=== PATIENT | female | born 1980 | race Caucasian/White ===

== ENCOUNTER → 2017-07-26 | Outpatient (CLI) | payer OTHER ==
--- NOTE | 2017-07-30 09:03 | MR ---
EXAMINATION TYPE: MR lumbar spine wo con DATE OF EXAM: 07/26/2017 COMPARISON: CT scan 10/24/2015, MRI 09/23/2014 HISTORY: Low back pain x4-5 Years, getting worse, previous MRI on PACS TECHNIQUE: T1 and T2 axial and sagittal images of the lumbar spine are submitted. FINDINGS: There is no abnormal signal seen within the visualized spinal cord or paraspinal soft tissu es. Incidental note made of gallstones. At L1-2 there is no disc herniation or canal stenosis. No foraminal encroachment. At L2-3 there is no disc herniation or canal stenosis. No foraminal encroachment. At L3-4 there is focal central disc bulging with mild effacement of thecal sac. No Canal stenosis. Ne ural foramina are patent. At L4-5 there is broad-based central disc protrusion with mild effacement of thecal sac. Hypertrophic change and ligamentum flavum and facets are noted. Mild bilateral foraminal encroachment and central stenosis. At L5-S1 there is severe degenerative disc disease with vacuum disc and facet arthropathy. There is m oderate bilateral foraminal encroachment and mild effacement of thecal sac due to broad-based central disc bulging and borderline stenosis. IMPRESSION: 1. Severe degenerative disc disease L5-S1 with facet arthropathy and bilateral foraminal encroachment . Broad-based disc bulging or protrusion results in mild effacement of thecal sac and borderline to m ild canal stenosis. 2. Broad-based central disc protrusion L4-L5 with mild effacement of thecal sac and mild central sten osis. 3. Focal central disc bulging L3-L4 with no canal stenosis or foraminal encroachment. 4. Findings at all levels are stable. 5. Cholelithiasis.
== END | disposition home or self-care (01) ==
LOC: RADMRIMAIN 21:20
PROVIDERS: ATTEND Family Medicine
DX: M48.07 Spinal stenosis, lumbosacral region (principal); M51.27 Other intervertebral disc displacement, lumbosacral region; M51.37 Other intervertebral disc degeneration, lumbosacral region; M46.97 Unspecified inflammatory spondylopathy, lumbosacral region
CPT/HCPCS: 72148

== ENCOUNTER 2017-07-27 14:10 | Emergency (ER) | payer OTHER ==
[2017-07-27] MEDS ORDERED: HYDROcodone/APAP 10-325MG 1 EACH TAB PO ONE (15:46)
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
[2017-07-27 16:18] VITALS: RESP 18
[2017-07-27 16:28] LABS: Basophils # (A) 0.1 k/uL (0-0.2); Basophils % (A) 1 %; Eosinophils # (A) 0.3 k/uL (0-0.7); Eosinophils % (A) 3 %; HCT 36.2 % (34.0-46.0); HGB 11.6 gm/dL (11.4-16.0); Lymphocytes # (A) 1.9 k/uL (1.0-4.8); Lymphocytes % (A) 19 %; MCH 32.2 pg (25.0-35.0); MCHC 31.9 g/dL (31.0-37.0); MCV 100.7 fL (80.0-100.0); Macrocytosis Slight; Mean Platelet Volume 7.5; Monocytes # (A) 0.4 k/uL (0-1.0); Monocytes % (A) 4 %; Neutrophils # (A) 7.1 k/uL (1.3-7.7); Neutrophils % (A) 72 %; Platelet Count 417 k/uL (150-450); RBC 3.59 m/uL (3.80-5.40); RDW 14.6 % (11.5-15.5); WBC 9.8 k/uL (3.8-10.6)
[2017-07-27 16:30] LABS: Appearance,Urine Turbid (Clear); Bilirubin,Urine Negative (Negative); Blood,Urine Large (Negative); Color,Urine Dark Red; Glucose,Urine (UA) Negative (Negative); Ketones,Urine Negative (Negative); Leukocyte Esterase,Urine Small (Negative); Mucus,Urine Few /hpf; Nitrite,Urine Negative (Negative); Protein,Urine 2+ (Negative); RBC,Urine >182 /hpf (0-5); Specific Gravity,Urine 1.019 (1.001-1.035); Squamous Epithelial Cell,Urine 25 /hpf (0-4); Urobilinogen,Urine <2.0 mg/dL (<2.0); WBC,Urine 5 /hpf (0-5)
[2017-07-27 16:45] LABS: ALT 44 U/L (9-52); AST 33 U/L (14-36); Albumin 3.2 g/dL (3.5-5.0); Alkaline Phosphatase 58 U/L (38-126); Anion Gap 5 mmol/L; Blood Urea Nitrogen 15 mg/dL (7-17); Calcium 8.5 mg/dL (8.4-10.2); Carbon Dioxide 29 mmol/L (22-30); Chloride 107 mmol/L (98-107); Glucose 82 mg/dL (74-99); Potassium 3.7 mmol/L (3.5-5.1); Sodium 141 mmol/L (137-145); Total Bilirubin 0.3 mg/dL (0.2-1.3); Total Protein 5.9 g/dL (6.3-8.2)
[2017-07-27 17:41] LABS: T4, Free (Free Thyroxine) 0.12 ng/dL (0.78-2.19)
[2017-07-27 18:22] VITALS: BP 143/77; PULSE 70; TEMP 98
== END 2017-07-27 18:22 | disposition home or self-care (01) ==
LOC: EC 14:10
DX: E03.9 Hypothyroidism, unspecified (principal); G40.909 Epilepsy, unspecified, not intractable, without status epilepticus; G89.29 Other chronic pain; F32.9 Major depressive disorder, single episode, unspecified; F17.200 Nicotine dependence, unspecified, uncomplicated; Z79.1 Long term (current) use of non-steroidal anti-inflammatories (NSAID); Z79.899 Other long term (current) drug therapy; Z88.5 Allergy status to narcotic agent; Z88.8 Allergy status to other drugs, medicaments and biological substances
CPT/HCPCS: 36415; 80053; 81001; 81025; 83880; 84439; 84443; 85025; 99284

== ENCOUNTER → 2019-01-16 | Outpatient (CLI) | payer OTHER ==
--- NOTE | 2019-01-16 15:05 | XR ---
EXAMINATION TYPE: XR chest 2V DATE OF EXAM: 01/16/2019 COMPARISON: NONE TECHNIQUE: PA and lateral views submitted. HISTORY: left posterior thorax pain FINDINGS: The lungs are clear and there is no pneumothorax, pleural effusion, or focal pneumonia. Atrophic ch jesus of the spine. Hyperinflation suggests COPD IMPRESSION: 1. No acute process.
--- NOTE | 2019-01-16 15:06 | XR ---
EXAMINATION TYPE: XR thoracic spine complete DATE OF EXAM: 01/16/2019 COMPARISON: NONE HISTORY: Pain Alignment is anatomic. There is no compression deformities. Vertebral body height and disc interspa sophie are maintained. Mild hypertrophic change of the vertebral column. There is mild degenerative dis c disease involving the mid and lower vertebral column. IMPRESSION: 1. Mild hypertrophic changes with no compression deformities. If there is concern for disc herniation consider follow-up MRI.
== END | disposition home or self-care (01) ==
LOC: RADXRMAIN 14:21
PROVIDERS: ATTEND Emergency Medicine
DX: M53.84 Other specified dorsopathies, thoracic region (principal); R07.82 Intercostal pain; S20.222D Contusion of left back wall of thorax, subsequent encounter
CPT/HCPCS: 71046; 72072

== ENCOUNTER → 2019-09-14 | Outpatient (CLI) | payer BC ==
--- NOTE | 2019-09-14 12:19 | EST ---
EXERCISE STRESS AGE: 39 SEX: M HT: 5'8' WT: 165 PROTOCOL: Exercise Stress Test STAGE: IV DURATION OF EXERCISE: 12:00 HEART RATE REST: 65 BLOOD PRESSURE REST: 130/67 MAXIMUM HEART RATE ACHIEVED: 152 MAXIMUM BLOOD PRESSURE: 169/68 85% MPHR: 154 100% MPHR: 181 METS: 13.0 INDICATIONS: Hyperlipidemia, family history. CLINICAL INFORMATION: Baseline EKG shows sinus rhythm, poor R-wave progression. Normal axis, normal intervals. Patient exercised on Mitchel protocol for a total of 12 minutes achieving 13 METS, 84% of predicted maximal heart rate without chest pain or diagnostic ST-segment depression. CONCLUSION: 1. Excellent exercise tolerance. 2. Negative stress test by EKG criteria at 84% of predicted maximal heart rate. MMODL / IJN: [id number] /
== END | disposition home or self-care (01) ==
LOC: RADNMMAIN 09:56
PROVIDERS: ATTEND Family Medicine
DX: I10 Essential (primary) hypertension (principal); E78.00 Pure hypercholesterolemia, unspecified; Z82.49 Family history of ischemic heart disease and other diseases of the circulatory system; Z88.6 Allergy status to analgesic agent; Z88.8 Allergy status to other drugs, medicaments and biological substances
CPT/HCPCS: 93017

== ENCOUNTER 2021-08-09 22:32 | Emergency (ER) | payer BC, OTHER ==
[2021-08-09 22:43] VITALS: BP 133/89; PULSE 83; RESP 18; TEMP 97.1
--- NOTE | 2021-08-09 22:52 | ED ---
ENT HPI - General Chief complaint: Dental/Oral Stated complaint: Dental Abscess Time Seen by Provider: 08/09/21 22:42 Source: patient, RN notes reviewed Mode of arrival: ambulatory Limitations: no limitations - History of Present Illness Initial comments: This is a pleasant 40-year-old female comes ER complaining of a tender lump near her upper anterior gum line which popped earlier tonight and drained pus. Patient states it feels much better now. However he is concerned about infection. No sore throat or difficulty swallowing. No other sores or intraoral lesions. No fever or chills. No immunosuppression. Patient is a cigarette smoker. Patient has a history of thyroid disease. No diabetes. No headache, no fever or chills, no changes in vision or hearing, no sore throat or difficulty with speech, no neck pain, no chest pain or shortness of breath, no abdominal pain, no nausea or vomiting, no changes in urination or bowel movements, no numbness or tingling, no extremity pain, no skin rashes or lesions. MD complaint: tooth pain - Related Data Home Medications Medication Instructions Recorded Confirmed Atorvastatin Calcium [Lipitor] 40 mg PO HS 06/27/16 07/27/17 Ibuprofen [Motrin] 800 mg PO TID 06/27/16 07/27/17 Citalopram Hydrobromide [CeleXA] 40 mg PO DAILY 07/27/17 07/27/17 Cyclobenzaprine [Flexeril] 10 mg PO TID 07/27/17 07/27/17 Levothyroxine Sodium [Synthroid] 137 mcg PO DAILY 07/27/17 07/27/17 levETIRAcetam [Keppra] 250 mg PO BID 07/27/17 07/27/17 Previous Rx's Medication Instructions Recorded HYDROcodone/APAP 10-325MG [[place] 1 tab PO Q6H PRN #8 tab 07/27/17 10-325] Cyclobenzaprine [Flexeril] 10 mg PO TID PRN #15 tab 12/30/18 Ibuprofen [Motrin] 600 mg PO Q8HR PRN #30 tab 12/30/18 Penicillin V Potassium [Pen Vee K] 500 mg PO QID #40 tablet 08/09/21 Allergies Allergy/AdvReac Type Severity Reaction Status Date / Time buprenorphine [From Butrans] AdvReac Severe Chest Verified 08/09/21 22:43 Pain/Sweating/Nausea/Altered Mental Status tramadol AdvReac Seizures Verified 08/09/21 22:43 Review of Systems ROS Statement: Those systems with pertinent positive or pertinent negative responses have been documented in the HPI. ROS Other: All systems not noted in ROS Statement are negative. Past Medical History Past Medical History: Seizure Disorder, Thyroid Disorder Additional Past Medical History / Comment(s): graves, chronic back pain, History of Any Multi-Drug Resistant Organisms: None Reported Past Surgical History: Appendectomy, Section, Tubal Ligation Past Psychological History: Anxiety, Depression Smoking Status: Light tobacco smoker Past Alcohol Use History: None Reported Past Drug Use History: None Reported - Past Family History Father Family Medical History: CVA/TIA, Memory Impairment, Seizure Disorder General Exam - General Exam Comments Initial Comments: Patient does not appear to be ill or toxic. Vital signs reviewed Limitations: no limitations General appearance: alert, in no apparent distress Head exam: Present: atraumatic, normocephalic, normal inspection Eye exam: Present: normal appearance, PERRL, EOMI. Absent: scleral icterus, conjunctival injection ENT exam: Present: mucous membranes moist, TM's normal bilaterally, normal external ear exam. Absent: normal oropharynx (Patient has evidence of an upper gumline dental abscess. Note that the patient has no remaining teeth and normally wears dentures. No airway compromise. No evidence of cellulitis. No tonsillar abnormality), mucous membranes dry Expanded Ear exam: Present: normal external inspection Mouth exam: Present: tongue normal. Absent: drooling, trismus, muffled voice, tongue elevation, laceration Throat exam: normal inspection. negative: tonsillar erythema, tonsillomegaly, tonsillar exudate, R peritonsillar mass, L peritonsillar mass Neck exam: Present: normal inspection, full ROM. Absent: tenderness, meningismus, lymphadenopathy Respiratory exam: Present: normal lung sounds bilaterally. Absent: respiratory distress, wheezes, rales, rhonchi, stridor Cardiovascular Exam: Present: regular rate, normal rhythm, normal heart sounds. Absent: systolic murmur, diastolic murmur, rubs, gallop, clicks GI/Abdominal exam: Present: soft. Absent: distended, tenderness Neurological exam: Present: alert, oriented X3, CN II-XII intact Psychiatric exam: Present: normal affect, normal mood Course Vital Signs 08/09/21 22:38 Temperature 97.1 F L Pulse Rate 83 Respiratory 18 Rate Blood Pressure 133/89 O2 Sat by Pulse 99 Oximetry Medical Decision Making - Medical Decision Making Patient presents symptomology and signs consistent with a dental abscess. Patient did not appear to be systemically ill. Treated with oral antibiotics. Counseled on smoking cessation. All questions answered. Return to follow parameters discussed. Patient was told to return to the ER for any signs or symptoms worsen. Told to return immediately if any other problems arise. All questions answered. Treatment plan discussed. Patient in agreement Disposition Clinical Impression: Dental abscess, Cigarette smoker Disposition: HOME SELF-CARE Condition: Good Instructions (If sedation given, give patient instructions): How to Stop Smoking (ED), Dental Abscess (ED) Additional Instructions: Call tomorrow morning to set up a follow-up appointment with your regular doctor. Take antibiotics as directed. Work on smoking cessation. Follow-up with your regular physician as directed. Return to the ER immediately if any symptoms worsen, new symptoms arise, or any other problems develop. Prescriptions: Penicillin V Potassium [Pen Vee K] 500 mg PO QID #40 tablet Is patient prescribed a controlled substance at d/c from ED?: No Referrals: Leighton Epps MD [Primary Care Provider] - 08/11/21 Time of Disposition: 22:52
[2021-08-09] MEDS ORDERED: PENICILLIN V POTASSIUM 250 MG TAB PO ONE (23:00)
== END 2021-08-09 23:09 | disposition home or self-care (01) ==
LOC: EC 22:32
DX: K04.7 Periapical abscess without sinus (principal); F17.210 Nicotine dependence, cigarettes, uncomplicated; Z88.1 Allergy status to other antibiotic agents; E07.9 Disorder of thyroid, unspecified; Z90.49 Acquired absence of other specified parts of digestive tract; Z98.51 Tubal ligation status; F41.9 Anxiety disorder, unspecified; F32.A Depression, unspecified
CPT/HCPCS: 99282